=== PATIENT | male | born 1945 | race Caucasian/White ===

== ENCOUNTER → 2016-04-13 | Outpatient (CLI) | payer MEDICARE, BC | LOC: GMAB 14:15 | PROVIDERS: ATTEND Family Medicine | DX: M15.0 Primary generalized (osteo)arthritis (principal); R97.20 Elevated prostate specific antigen [PSA]; I10 Essential (primary) hypertension ==

== ENCOUNTER → 2016-04-16 | Outpatient (CLI) | payer MEDICARE ==
--- NOTE | 2016-04-16 11:58 | MRI ---
EXAM DESCRIPTION: Brain w/oContrast CLINICAL HISTORY: HEADACHE several days of a headache COMPARISON: None available TECHNIQUE: Non contrast MRI of the brain is performed according to our usual protocol including multiplanar multi sequence technique. FINDINGS: There are a few scattered T2 hyperintensities noted within the subcortical, deep and periventricular white matter. No acute infarct on today's study. Involutional changes noted with prominence of the ventricles and sulci. No mass, mass effect or shift. No abnormal extra-axial fluid. No abnormal extra-axial fluid collections are present.Normal flow voids are present. The calvarium is intact. The orbits and globes are unremarkable. Frothy debris noted within bilateral maxillary sinuses. Mucosal thickening within the paranasal sinuses on today's study most pronounced within bilateral ethmoid air cells. IMPRESSION: Mucosal thickening along with frothy debris seen within the maxillary sinuses. These findings can be compatible with sinusitis. Involutional changes and minimal white matter disease noted. These findings are likely age appropriate. No acute infarct or mass noted on today's exam. Electronically signed by: Venkat Lowe MD 04/16/2016 11:57 AM [employer]UILL WINDER
--- NOTE | 2016-04-16 12:03 | MRI ---
EXAM DESCRIPTION: Lumbar Spine w/o Contrast CLINICAL HISTORY: RADICULOPATHY, LUMBAR REGION COMPARISON: None Available. TECHNIQUE: MRI of the lumbar spine is performed according to our usual protocol with axial and sagittal multi sequence imaging. FINDINGS: S-shaped scoliosis of the lumbar spine with left lateral translation of L3 on L4. Marrow signal, vertebral body height and AP alignment appear unremarkable. Multilevel endplate edema noted from degenerative disc disease. L1-2: Facet degeneration, circumferential disc osteophyte complex and ligamentum flavum thickening are noted. This reduces the AP diameter of the spinal canal to 7.7 mm. Moderate bilateral neural foraminal narrowing. L2-3: Facet degeneration, ligamentum flavum thickening and a mild 3 mm circumferential disc osteophyte complex. The midline diameter of the spinal canal is narrowed to 8 mm. There is moderate right and mild left neural foraminal narrowing. L3-4: Facet degeneration, ligamentum flavum thickening and a 5 mm circumferential disc osteophyte complex. There is severe spinal canal narrowing. Moderate bilateral neural foraminal narrowing noted, right greater than left. L4-5: Facet degeneration, ligamentum flavum thickening and an asymmetric left circumferential disc osteophyte complex. The midline diameter of the spinal canal is adequate at 1 cm. There is moderate left neural foraminal narrowing. The right neural foramen is unremarkable. L5-S1: Facet degeneration, ligamentum flavum thickening and a circumferential disc osteophyte complex noted. The midline diameter of the spinal canal is adequate at 1.3 cm. There is narrowing of the lateral recesses bilaterally and contact of the descending S1 nerve roots. Additionally there is moderate bilateral neural foraminal narrowing. IMPRESSION: 1. There is multilevel spinal canal narrowing most pronounced at L3-4 in which there is severe narrowing due to facet degeneration, ligamentum flavum thickening and a circumferential disc osteophyte complex. Multiple lumbar nerve roots are contacted at this level. 2. There is possible contact of the exiting left L4 and L5 nerve roots along with definitive contact of bilateral descending S1 nerve roots due to lateral recess narrowing. These findings could result in radiculopathies if the patient is symptomatic. 3. There is severe facet degeneration noted from L1 to through L4-5. Electronically signed by: Venkat Lowe MD 04/16/2016 12:02 PM [employer] IN[employer]
== END | disposition home or self-care (01) ==
LOC: MRI 09:20
PROVIDERS: ATTEND Family Medicine
DX: R51 Headache (principal); M54.16 Radiculopathy, lumbar region; M48.06 Spinal stenosis, lumbar region

== ENCOUNTER → 2016-09-08 | Outpatient (CLI) | payer MEDICARE | END | disposition home or self-care (01) | LOC: GMAB 14:52 | PROVIDERS: ATTEND Family Medicine | DX: R97.20 Elevated prostate specific antigen [PSA] (principal) ==

== ENCOUNTER → 2017-06-10 | Outpatient (CLI) | payer MEDICARE | LOC: RESP 06-09 13:50 | PROVIDERS: ATTEND Family Medicine | DX: J44.9 Chronic obstructive pulmonary disease, unspecified (principal) ==

== ENCOUNTER → 2017-08-23 | Outpatient (CLI) | payer MEDICARE | LOC: GMAE 15:08 | PROVIDERS: ATTEND Family Medicine | DX: R20.2 Paresthesia of skin (principal); M54.16 Radiculopathy, lumbar region; G25.81 Restless legs syndrome; G60.3 Idiopathic progressive neuropathy; Z79.891 Long term (current) use of opiate analgesic; Z51.81 Encounter for therapeutic drug level monitoring ==

== ENCOUNTER → 2017-11-16 | Outpatient (CLI) | payer MEDICARE | LOC: GMAE 14:51 | PROVIDERS: ATTEND Family Medicine | DX: N40.0 Benign prostatic hyperplasia without lower urinary tract symptoms (principal); Z79.899 Other long term (current) drug therapy ==

== ENCOUNTER → 2018-01-17 | Outpatient (CLI) | payer MEDICARE | LOC: GMAE 12:08 | PROVIDERS: ATTEND Family Medicine | DX: R26.81 Unsteadiness on feet (principal); M89.9 Disorder of bone, unspecified; R79.9 Abnormal finding of blood chemistry, unspecified; R53.82 Chronic fatigue, unspecified ==

== ENCOUNTER 2018-09-24 11:29 | Emergency (ER) | payer MEDICARE ==
[2018-09-24] MEDS ORDERED: ONDANSETRON ODT 8 MG TAB SL ONE (11:56)
[2018-09-24] MEDS ORDERED: MORPHINE SULFATE INJ 10 MG/ML VIAL IV ONE (11:56)
[2018-09-24] MEDS ORDERED: SODIUM CHLORIDE 0.9% 1000ML 1,000 ML IVS ONE (12:32)
--- NOTE | 2018-09-24 12:35 | RAD ---
EXAM DESCRIPTION: Abdomen Series CLINICAL HISTORY: bodya aches, sob, poor po, right abd pain COMPARISON: Chest radiograph dated 04/14/2018. TECHNIQUE: Upright PA chest with supine and upright views of the abdomen FINDINGS: Mild central pulmonary vascular congestion. Peripheral interstitial thickening more pronounced within the bilateral lower lungs consistent with mild scarring/fibrosis. No significant pleural effusion or pneumothorax. The heart is normal in size. The aorta is mildly tortuous. Few gas-filled loops of bowel within the left abdomen without focal localizing sign or definite evidence of bowel obstruction. No free subdiaphragmatic air. No abnormal calcifications. No acute osseous abnormality. Moderate to severe multilevel lumbar spine degenerative changes with mild levoscoliosis. IMPRESSION: 1. Mild central pulmonary vascular congestion. 2. Unremarkable bowel gas pattern. Electronically signed by: Nomi Hastings DO 09/24/2018 12:33 PM CDT
[2018-09-24 13:04] VITALS: O2SAT 99
--- NOTE | 2018-09-24 13:24 | CT ---
EXAM DESCRIPTION: CT ABDOMEN AND PELVIS WITH CONTRAST CLINICAL HISTORY: right sided abd pain COMPARISON: Abdominal radiograph same day. TECHNIQUE: CT of the abdomen and pelvis are performed during IV bolus administration of 75 mL of Isovue-320. No oral contrast was given. FINDINGS: Bibasilar subsegmental atelectasis. The liver is normal in contour and enhancement. Subcentimeter right hepatic lobe cyst . The gallbladder is mildly distended (gallbladder fundus measuring up to 5.7 cm in diameter) with mild thickening of the gallbladder wall. No calcified gallstone. No biliary ductal dilatation. The Spleen, pancreas, and kidneys are unremarkable. No hydronephrosis or nephrolithiasis. No focal bowel wall thickening or bowel obstruction. The appendix is normal. Mild to moderate colonic diverticulosis is present without evidence of diverticulitis. There is no lymphadenopathy, inflammation, or free fluid observed. Moderate atherosclerotic disease affects the aorta and branches. The prostate is enlarged with all scattered prosthetic calcifications. The partially decompressed bladder demonstrates circumferential bladder wall thickening which may be due to bladder outlet obstruction. Moderate to severe multilevel lumbar spine degenerative changes. IMPRESSION: 1. Distended gallbladder with suggestion of mild gallbladder wall thickening. No calcified gallstones. These findings are nonspecific. If there is clinical concern for acute cholecystitis, further evaluation with ultrasound can be considered. 2. Unremarkable appendix. 3. Diverticulosis without diverticulitis. This exam was performed according to our departmental dose-optimization program, which includes automated exposure control, adjustment of the mA and/or kV according to patient size and/or use of iterative reconstruction technique. Electronically signed by: Nomi Hastings DO 09/24/2018 1:23 PM CDT
[2018-09-24] MEDS ORDERED: PIPERACILLIN/TAZOBACTAM 3.375 GM in SODIUM CHLORIDE 0.9% 100ML 100 ML IVPB ONE (13:31)
[2018-09-24] MEDS ORDERED: PIPERACILLIN/TAZOBACTAM 3.375 GM VIAL IVPB ONE (13:34)
[2018-09-24] MEDS ORDERED: SODIUM CHLORIDE 0.9% 100ML 100 ML IVPB ONE (13:35)
--- NOTE | 2018-09-24 14:09 | ED.PDOC ---
History of Present Illness - General Chief Complaint: Respiratory Problem Stated Complaint: shortness of breath Time Seen by Provider: 09/24/18 11:36 Source: patient Exam Limitations: no limitations - History of Present Illness Initial Comments: the patient's a 73-year-old male presenting to the emergency room secondary to almost 10 days of very symptoms. He was seen at [facility] about a week ago and it was felt that he was starting to have a bronchitis so he was placed on azithromycin at that time. The next day he started having a few episodes of vomiting. Since that time he has started to develop more right upper quadrant pain. He does feel a little bit short of breath but he does have long-standing COPD and some history of CHF. He also has significant anxiety which makes him feel short of breath. No real fevers. No constipation but he did have 2 or 3 days of diarrhea. No syncope. Timing/Duration: unsure Severity: moderate Improving Factors: nothing Worsening Factors: nothing Associated Symptoms: loss of appetite, malaise, nausea/vomiting, shortness of breath, weakness Allergies/Adverse Reactions: Allergies Codeine Allergy (Verified 04/30/14 21:41) Latex Allergy (Verified 04/30/14 21:41) Varenicline [From Chantix] Adverse Reaction (Verified 04/30/14 21:41) Home Medications: Ambulatory Orders ALPRAZolam [Xanax] 0.5 mg PO DAILY PRN 09/24/18 Albuterol Sulfate Nebs [Proventil Nebs] 2.5 mg INH QID 09/24/18 Aspirin [Aspirin Childrens] 81 mg PO DAILY 09/24/18 Atorvastatin Calcium 40 mg PO DAILY 09/24/18 Diclofenac Sodium [Diclofenac Sodium Dr] 75 mg PO BID 09/24/18 [id number] [Trelegy Ellipta 100-62.5-25 Mcg/INH] 1 aer IN DAILY 09/24/18 Losartan Potassium 25 mg PO DAILY PRN 09/24/18 Nebivolol HCl [Bystolic] 5 mg PO DAILY 09/24/18 Pramipexole Dihydrochloride [Pramipexole Dihydrochlori] 2 tablet PO DAILY 09/24/18 Spironolactone [Aldactone] 25 mg PO DAILY 09/24/18 Tamsulosin [Flomax] 0.4 mg PO BEDTIME 09/24/18 Tramadol HCl 50 mg PO Q6H PRN 09/24/18 Review of Systems - Review of Systems Constitutional: States: malaise, weakness EENTM: States: no symptoms reported Respiratory: States: short of breath Cardiology: States: no symptoms reported Gastrointestinal/Abdominal: States: abdominal pain, nausea, vomiting Genitourinary: States: no symptoms reported Musculoskeletal: States: see HPI - e does report some left arm pain since a blood draw about a week ago. Skin: States: no symptoms reported Neurological: States: anxiety Endocrine: States: no symptoms reported All other Systems: No Change from Baseline Past Medical History (General) - Patient Medical History Hx Stroke: No Hx of COPD: Yes Hx Congestive Heart Failure: Yes Hx Hypertension: Yes Hx Diabetes: No Hx MRSA: Yes - Arm Wound MRSA Source:: Wound - Vaccination History Hx Influenza Vaccination: Yes Hx Pneumococcal Vaccination: Yes - Social History Hx Tobacco Use: Yes Family Medical History - Family History Father Family History: Unknown Physical Exam - Physical Exam General Appearance: Alert, Anxious, No apparent distress Eye Exam: bilateral normal Ears, Nose, Throat: hearing grossly normal, normal ENT inspection Neck: full range of motion, supple Respiratory: lungs clear, normal breath sounds, no respiratory distress, no accessory muscle use Cardiovascular/Chest: normal peripheral pulses, no edema, other - regular rate Peripheral Pulses: radial,right: 2+, radial,left: 2+, dorsalis pedis,right: 2+, dorsalis pedis,left: 2+ Gastrointestinal/Abdominal: other - the patient does have very significant right upper quadrant pain. He does have some guarding. 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 nml as tested, alert, oriented x 3 - he is very anxious and is currently having an anxiety attack Skin Exam: normal color Comments: Vital Signs - 24 hr 09/24/18 09/24/18 09/24/18 11:43 11:48 12:31 Temperature 98.7 F Pulse Rate [ 80 69 Left Brachial] Respiratory 32 H 32 H 20 Rate Blood Pressure 117/65 128/61 [Left Arm] O2 Sat by Pulse 99 98 Oximetry 09/24/18 13:00 Temperature Pulse Rate [ 68 Left Brachial] Respiratory 13 Rate Blood Pressure 145/62 [Left Arm] O2 Sat by Pulse 99 Oximetry Progress - Progress Progress: 09/24/18 14:12 the patient a 73-year-old male presenting with a progression of symptoms over the last 10 days that appears to be due to an acute cholecystitis. I suspect the process has been in slow progression due to the fact that the patient has been on azithromycin for suspected bronchitis for the better part of that time. He does have significant hyponatremia and has received a liter of IV fluids. He has also received a dose of Zosyn here. He has a moderate elevation of AST, ALT and alkaline phosphatase but no significant elevation of his bilirubin. The patient is going to be transferred to [facility] for sonographic evaluation of the gallbladder to determine if there is any evidence of decreased flow out of the biliary system that would need addressing to allow for improvement. If there is not then the patient may be able to get away with antibiotics and possibly avoid surgery, given his history of CHF and COPD. the patient's director learning and development is apparently Dr. Mckeon. transferring for further evaluation. - Results/Orders Results/Orders: 09/24/18 11:55 Telemetry .CONTINUOUS UA [URINALYSIS] Stat 09/24/18 12:00 EKG STAT 09/24/18 12:18 BLOOD CULTURE Stat 09/24/18 12:32 Hold Metformin x 48Hrs [id number] 09/24/18 13:31 Piperacillin/Tazobactam [Zosyn] 3.375 gm Sodium Chloride 0.9% 100Ml [NS (NACL 0.9%) 100ml] 100 ml IVPB ONCE Laboratory Results - last 24 hr 09/24/18 09/24/18 09/24/18 12:07 12:07 12:07 WBC 5.4 RBC 4.06 L Hgb 13.0 L Hct 37.7 L MCV 92.9 MCH 32.0 H MCHC 34.4 RDW 13.4 Plt Count 158 MPV 9.0 Absolute Neuts (auto) 3.90 Absolute Lymphs (auto) 1.00 Absolute Monos (auto) 0.50 Absolute Eos (auto) 0.00 Absolute Basos (auto) 0.00 Neutrophils % 72.8 Lymphocytes % 18.1 L Monocytes % 8.5 Eosinophils % 0.3 L Basophils % 0.3 PT 9.3 INR 0.93 PTT (SP) 29.6 D-Dimer, Quantitative 1.64 H* Sodium 127 L Potassium 4.9 Chloride 100 L Carbon Dioxide 17 L Anion Gap 14.9 BUN 23 H Creatinine 1.07 BUN/Creatinine Ratio 21.5 H Random Glucose 123 H Serum Osmolality 260.3 L Lactic Acid Calcium 8.9 Magnesium 1.8 Total Bilirubin 0.5 AST 282 H ALT 263 H Alkaline Phosphatase 208 H Creatine Kinase 48 CK-MB (CK-2) 4.0 CK-MB (CK-2) % Not Reportable Troponin I < 0.02 B-Natriuretic Peptide 84.2 Serum Total Protein 6.7 Albumin 3.3 Globulin 3.4 Albumin/Globulin Ratio 1.0 L Amylase 36 Lipase 26 TSH 1.40 09/24/18 12:07 WBC RBC Hgb Hct MCV MCH MCHC RDW Plt Count MPV Absolute Neuts (auto) Absolute Lymphs (auto) Absolute Monos (auto) Absolute Eos (auto) Absolute Basos (auto) Neutrophils % Lymphocytes % Monocytes % Eosinophils % Basophils % PT INR PTT (SP) D-Dimer, Quantitative Sodium Potassium Chloride Carbon Dioxide Anion Gap BUN Creatinine BUN/Creatinine Ratio Random Glucose Serum Osmolality Lactic Acid 2.2 Calcium Magnesium Total Bilirubin AST ALT Alkaline Phosphatase Creatine Kinase CK-MB (CK-2) CK-MB (CK-2) % Troponin I B-Natriuretic Peptide Serum Total Protein Albumin Globulin Albumin/Globulin Ratio Amylase Lipase TSH acute abdominal series appears benign. CT of abdomen and pelvis shows gallbladder dilation and mild gallbladder wall thickening. EKG showsnormal axis, normal sinus rhythm at [address] segment or T-wave changes indicative of acute ischemia. There is borderline R-wave progression in anterior leads. Normal QT interval. Departure - Departure Clinical Impression: Acute cholecystitis Disposition: Transfer to Hospital Departure Forms: ED Discharge - Pt. Copy, Patient Portal Self Enrollment Referrals: GOPI BOLES MD [Primary Care Provider] - 1-2 Weeks Home Medications: Ambulatory Orders ALPRAZolam [Xanax] 0.5 mg PO DAILY PRN 09/24/18 Albuterol Sulfate Nebs [Proventil Nebs] 2.5 mg INH QID 09/24/18 Aspirin [Aspirin Childrens] 81 mg PO DAILY 09/24/18 Atorvastatin Calcium 40 mg PO DAILY 09/24/18 Diclofenac Sodium [Diclofenac Sodium Dr] 75 mg PO BID 09/24/18 [id number]-[id number] [Trelegy Ellipta 100-62.5-25 Mcg/INH] 1 aer IN DAILY 09/24/18 Losartan Potassium 25 mg PO DAILY PRN 09/24/18 Nebivolol HCl [Bystolic] 5 mg PO DAILY 09/24/18 Pramipexole Dihydrochloride [Pramipexole Dihydrochlori] 2 tablet PO DAILY 09/24/18 Spironolactone [Aldactone] 25 mg PO DAILY 09/24/18 Tamsulosin [Flomax] 0.4 mg PO BEDTIME 09/24/18 Tramadol HCl 50 mg PO Q6H PRN 09/24/18 Transfer to Outside Facility - Transfer Information Accepting Provider:: dr adams Accepting Facility: [facility] Reason for Transfer: specialized care not available
[2018-09-24 14:53] VITALS: BP 121/61; TEMP 96.5
== END 2018-09-24 14:52 | disposition short-term general hospital (02) ==
LOC: ER 11:29
DX: K81.0 Acute cholecystitis (principal); E87.1 Hypo-osmolality and hyponatremia; J44.9 Chronic obstructive pulmonary disease, unspecified; I50.9 Heart failure, unspecified; F41.9 Anxiety disorder, unspecified; I11.0 Hypertensive heart disease with heart failure; Z87.891 Personal history of nicotine dependence; Z79.82 Long term (current) use of aspirin; Z79.899 Other long term (current) drug therapy; Z88.5 Allergy status to narcotic agent; Z91.040 Latex allergy status; Z88.8 Allergy status to other drugs, medicaments and biological substances
CPT/HCPCS: 36415; 74019; 74177; 80053; 81001; 82150; 82550; 82553; 83605; 83690; 83735; 83880; 84443; 84484; 85025; 85379; 85610; 85730; 87040; 93005; J2270; J2543; J7030; J7050

== ENCOUNTER → 2018-11-30 | Outpatient (CLI) | payer MEDICARE | LOC: GMAE 17:44 | PROVIDERS: ATTEND Family Medicine | DX: I10 Essential (primary) hypertension (principal); E78.2 Mixed hyperlipidemia; R73.03 Prediabetes ==

== ENCOUNTER → 2018-12-06 | Outpatient (CLI) | payer MEDICARE ==
--- NOTE | 2018-12-06 15:04 | US ---
EXAM DESCRIPTION: Aorta: Ultrasound. CLINICAL HISTORY: ENCOUNTER FOR SCREENING FOR OTHER DISORDER COMPARISON: CT scan of abdomen and pelvis with IV contrast September 2018. TECHNIQUE: Transcutaneous scanning: Two-dimensional and Doppler modes. FINDINGS: Abdominal aorta diameter - Proximal: 3.3 x 2.3 cm. Mid: 2.6 x 2.0 cm. Distal: 3.5 x 2.2 cm. Common Iliac diameter - Right: 10 mm. Left: 9 mm. Other: Atherosclerotic wall changes in the aorta.. IMPRESSION: 1. 3.5 cm abdominal aortic aneurysm. Recommend follow-up every 2 years. Reference: J Am Viri Radiol 2013;10:789-794. Electronically signed by: Alan Knott MD 12/06/2018 3:03 PM CDT
== END ==
LOC: US 09:00
PROVIDERS: ATTEND Family Medicine
DX: Z13.89 Encounter for screening for other disorder (principal); I71.4 Abdominal aortic aneurysm, without rupture

== ENCOUNTER → 2019-12-05 | Outpatient (CLI) | payer MEDICARE | LOC: GMAE 10:51 | PROVIDERS: ATTEND Family Medicine | DX: Z12.5 Encounter for screening for malignant neoplasm of prostate (principal); I10 Essential (primary) hypertension | CPT/HCPCS: 84443; G0103 ==